=== PATIENT | female | born 1975 | race Two or more races ===

== ENCOUNTER 2024-12-04 13:46 | Outpatient (CLI) | payer OTHER | END 2024-12-04 14:00 | disposition home or self-care (01) | LOC: MAMO-SONO 13:46 | PROVIDERS: ATTEND Student in an Organized Health Care Education/Training Program | DX: N60.11 Diffuse cystic mastopathy of right breast (principal); N60.12 Diffuse cystic mastopathy of left breast ==

== ENCOUNTER 2025-01-12 14:40 | Outpatient (CLI) | payer OTHER | END 2025-01-12 14:44 | disposition home or self-care (01) | LOC: SONOGRAMA 14:40 | PROVIDERS: ATTEND Student in an Organized Health Care Education/Training Program | DX: R10.2 Pelvic and perineal pain (principal) ==